=== PATIENT | female | born 1995 | race African-American/Black ===

== ENCOUNTER 2018-10-28 13:15 | Observation (INO) | payer MEDICAID ==
[~2018-10-28] VITALS: Ht 149.9 cm; Wt 88.9 kg
[2018-10-28] MEDS ORDERED: LACTATED RINGER'S 1,000 ML IV ONE (14:04)
[2018-10-28] MEDS ORDERED: TERBUTALINE SULFATE 1 MG/ML 1ML VIAL SC ONE ×2 (14:09→14:15)
[2018-10-28] MEDS ORDERED: PREN-96 PO (14:48)
== END 2018-10-28 15:43 | disposition home or self-care (01) | DRG 566 ==
LOC: LDRP 13:15
PROVIDERS: ADMIT Specialist; ATTEND Specialist
DX: O62.9 Abnormality of forces of labor, unspecified (principal); Z3A.33 33 weeks gestation of pregnancy; Z87.891 Personal history of nicotine dependence
CPT/HCPCS: 59025; 81002; 96372; G0378; J3105; 96361; 96375

== ENCOUNTER 2018-11-04 11:39 | Observation (INO) | payer MEDICAID ==
[~2018-11-04 11:39] MED LIST: PREN-96 PO
== END 2018-11-04 13:20 | disposition home or self-care (01) | DRG 563 ==
LOC: LDRP 11:39
PROVIDERS: ADMIT Specialist; ATTEND Specialist
DX: O60.03 Preterm labor without delivery, third trimester (principal); Z3A.34 34 weeks gestation of pregnancy; Z87.891 Personal history of nicotine dependence
CPT/HCPCS: 59025; 76818; 81002; G0378

== ENCOUNTER 2018-11-10 18:14 | Observation (INO) | payer MEDICAID ==
[~2018-11-10] VITALS: Ht 149.9 cm; Wt 89.4 kg
[2018-11-10] MEDS ORDERED: TERBUTALINE SULFATE 1 MG/ML 1ML VIAL SC SCH (18:45)
== END 2018-11-10 23:57 | disposition home or self-care (01) | DRG 566 ==
LOC: LDRP 18:14
PROVIDERS: ADMIT Obstetrics & Gynecology; ATTEND Obstetrics & Gynecology
DX: O26.893 Other specified pregnancy related conditions, third trimester (principal); R10.9 Unspecified abdominal pain; Z3A.35 35 weeks gestation of pregnancy
CPT/HCPCS: 59025; 76818; 81002; 96372; G0378; J3105

== ENCOUNTER 2018-11-11 07:29 | Observation (INO) | payer MEDICAID | END 2018-11-11 13:45 | disposition home or self-care (01) | DRG 563 | LOC: LDRP 12:30 | PROVIDERS: ADMIT Specialist; ATTEND Specialist | DX: O60.03 Preterm labor without delivery, third trimester (principal); Z3A.35 35 weeks gestation of pregnancy | CPT/HCPCS: 59025; 81002; G0378 ==

== ENCOUNTER 2018-12-08 06:01 | Inpatient (IN) | payer MEDICAID ==
[~2018-12-08] VITALS: Ht 149.9 cm; Wt 91.2 kg
[2018-12-08] VITALS (15 sets, daily range): BP systolic 100–136; BP diastolic 52–91
[2018-12-08] MEDS ORDERED: LACTATED RINGER'S 1,000 ML IV SCH (06:43)
[2018-12-08 07:37] LABS: Basophils # (auto) 0 uL; Basophils % (auto) 0.6 % (0.0-2.0); Eosinophils # (auto) 0.2 uL; Eosinophils % (auto) 2.7 % (0.0-7.0); Hematocrit 35.9 % (36.0-46.0); Hemoglobin 12.1 g/dL (12.2-16.2); Lymphocytes # (auto) 2.4 uL; Lymphocytes % (auto) 32.5 % (10.0-50.0); Mean Corpuscular Hemoglobin 29.3 pg (28.0-32.0); Mean Corpuscular Hgb Conc. 33.6 g/dL (32.0-36.0); Mean Corpuscular Volume 87.1 fL (80.0-100.0); Monocytes # (auto) 0.7 uL; Monocytes % (auto) 9.7 % (0.0-12.0); Neutrophils # (auto) 3.9 uL; Neutrophils % (auto) 54.5 % (37.0-80.0); Nucleated Red Blood Cells % 0.1 %; Platelet Count (auto) 159 10^3/uL (140-450); Red Blood Cells 4.12 10^6/uL (4.0-5.20); Red Cell Distribution Width 14.7 % (11.8-14.3); White Blood Cell 7.2 10^3/uL (4.4-10.8)
[2018-12-08 07:51] LABS: Urine Bacteria MOD /hpf (None Seen); Urine Blood Negative /uL (Negative); Urine Mucus FEW (None Seen); Urine Specific Gravity 1.013 (1.001-1.035); Urine WBC 10 /hpf (0 - 5)
[2018-12-08 07:53] LABS: INR < 0.93 (0.9-1.15); Partial Thromboplastin Time 29.4 sec (23.64-32.05)
[2018-12-08 08:03] LABS: Potassium 3.6 mmol/L (3.5-5.1)
[2018-12-08 08:04] LABS: Albumin 2.5 g/dL (3.4-5.0); BUN/Creatinine Ratio 5.6; Bilirubin, Total 0.2 mg/dL (0.2-1.0); Total Protein 6.6 g/dL (6.4-8.2)
[2018-12-08 08:50] LABS: Calcium 8.4 mg/dL (8.5-10.1)
[2018-12-08] MEDS ORDERED: TETRACAINE 1% INJ 2 ML VIAL IJ ONE (11:53)
[2018-12-08] MEDS ORDERED: fentaNYL CITRATE 100 MCG/2 ML VL ONE (11:53)
[2018-12-08] MEDS ORDERED: MIDAZOLAM HCL 1MG/1ML-2 ML VIAL ONE (11:53)
[2018-12-08] MEDS ORDERED: MORPHINE SULF(PF) 0.5MG/ML 10ML VIAL ONE (11:53)
[2018-12-08] MEDS ORDERED: OXYTOCIN 10 UNIT/ML 10ML VIAL ONE (12:54)
[2018-12-08] MEDS ORDERED: ceFAZolin 1GM VL ONE (12:54)
[2018-12-08] MEDS ORDERED: diphenhdrAMINE HCL 50 MG/1 ML VL IV PRN (14:15)
[2018-12-08] MEDS ORDERED: MORPHINE SULFATE 4 MG/ML SYR/VIAL IV PRN (14:15)
[2018-12-08] MEDS ORDERED: NALOXONE HCL 0.4 MG/ML VIAL IV PRN (14:15)
[2018-12-08] MEDS ORDERED: HYDROmorphone HCL 2 MG/ML VL IV PRN (14:15)
[2018-12-08] MEDS ORDERED: ONDANSETRON HCL 4 MG/2 ML VIAL IV PRN (14:15)
[2018-12-08] MEDS ORDERED: METOCLOPRAMIDE HCL 5MG/ml INJ 2ml VIAL IV PRN (14:15)
[2018-12-08] MEDS ORDERED: fentaNYL CITRATE 100 MCG/2 ML VL IV PRN (14:15)
[2018-12-08] MEDS ORDERED: ceFAZolin 1GM/50ML 50 ML IV SCH (14:15)
--- NOTE | 2018-12-08 15:15 | NUR ---
Post Op for LDRP: Received patient from PACU via bed to room . Patient A/A/Ox4, abdominal binder and bilateral SCD's are in place, IV fluids placed on pump and infusing per order, incisional site dressing clean/dry/intact and Antunez Catheter to gravity draining clear yellow urine. Incentive Spirometer at bedside and instruction on proper use with return demonstration done by patient. Call light given, rail up x2, and position to pts request.
[2018-12-08] MEDS ORDERED: ACETAMINOPHEN IV 1000 MG/100ML (10MG/ML) IV SCH (16:14)
--- NOTE | 2018-12-08 16:45 | NUR ---
Teaching: Reviewed information in [employer] booklet with patient. Discussed benefits of and risks associated with not . Discussed different positions, proper latch, feeding cues, and baby-led . Provided information of medication side effects related to . All questions and concerns addressed at this time. Patient verbalized understanding of information.
--- NOTE | 2018-12-08 17:00 | NUR ---
Bottle-feeding Education: Patient encouraged to breastfeed. Benefits of and the risk of providing formula to was discussed. Patient verbalized understanding of the benefits and is aware of risk and insists on bottle-feeding. Formula provided and instruction on formula preperation from the [employer] booklet reviewed with patient.
[2018-12-08] MEDS: ceFAZolin 1GM/50ML 50 ML IV SCH (20:47)
[2018-12-08] MEDS: HYDROmorphone HCL 2 MG/ML VL IV PRN (20:47)
[2018-12-08] MEDS ORDERED: ACETAMINOPHEN IV 1000 MG/100ML (10MG/ML) IV PRN (21:30)
[2018-12-08] MEDS: LACTATED RINGER'S 1,000 ML IV SCH ×2 (22:01→22:04)
[2018-12-09] VITALS (9 sets, daily range): BP systolic 106–127; BP diastolic 63–79
--- NOTE | 2018-12-09 01:40 | NUR ---
Ambulation: Patient provided with pericare, clean peripad, underwear and gown. Surgical dressing removed, incision clean and dry with 13 intact angela and well approximated edges. Incision left open to air. Patient provided non-slip socks and OOB with standby assistance by RN. Patient ambulated in hallway with steady gait accompanied by RN. Bed linen changed. Patient ambulated back to bed with steady gait and no distress noted, bed locked in lowest position, call light within reach and patient able to makes needs known. Will continue care.
[2018-12-09] MEDS: HYDROmorphone HCL 2 MG/ML VL IV PRN (04:45)
[2018-12-09] MEDS: ceFAZolin 1GM/50ML 50 ML IV SCH ×2 (04:47→12:57)
--- NOTE | 2018-12-09 05:00 | NUR ---
Gibbs catheter dc'd Dr Collier provides order to discontinue gibbs catheter. Gibbs dc'd with clean technique following deflation of balloon. Patient tolerated well with no complaints of pain. Continue care.
[2018-12-09 05:06] LABS: RPR Non Reactive (Non Reactive)
[2018-12-09 06:39] LABS: Basophils # (auto) 0.1 uL; Basophils % (auto) 1.1 % (0.0-2.0); Eosinophils # (auto) 0.1 uL; Hematocrit 34.9 % (36.0-46.0); Hemoglobin 11.8 g/dL (12.2-16.2); Lymphocytes # (auto) 1.5 uL; Lymphocytes % (auto) 19.1 % (10.0-50.0); Mean Corpuscular Hemoglobin 29.3 pg (28.0-32.0); Mean Corpuscular Hgb Conc. 33.7 g/dL (32.0-36.0); Monocytes # (auto) 0.8 uL; Monocytes % (auto) 9.7 % (0.0-12.0); Neutrophils # (auto) 5.4 uL; Neutrophils % (auto) 69.1 % (37.0-80.0); Nucleated Red Blood Cells % 0.1 %; Platelet Count (auto) 154 10^3/uL (140-450); Red Blood Cells 4.01 10^6/uL (4.0-5.20); Red Cell Distribution Width 14.9 % (11.8-14.3); White Blood Cell 7.8 10^3/uL (4.4-10.8)
[2018-12-09] MEDS ORDERED: LACTATED RINGER'S 1,000 ML IV SCH (09:35)
[2018-12-09] MEDS ORDERED: HYDROcodone-ACET 5/325MG TAB PO PRN (09:45)
[2018-12-09] MEDS: DOCUSATE SOD 100 MG CAP PO SCH ×2 (10:03→22:02)
[2018-12-09] MEDS: HYDROcodone-ACET 5/325MG TAB PO PRN ×2 (10:03→21:21)
--- NOTE | 2018-12-09 19:05 | NUR ---
PT up ambulating unit with steady gait, no acute distress noted
[2018-12-09] MEDS: SIMETHICONE 80 MG CHEWABLE TABLET PO PRN (19:11)
--- NOTE | 2018-12-09 21:26 | NUR ---
call placed out to Dr Price, regarding vital signs, awaiting call back at this time
[2018-12-09] MEDS: PIPERACILLIN-TAZOB 3.375GM 100 ML IV SCH (23:10)
[2018-12-09 23:12] LABS: Basophils # (auto) 0 uL; Basophils % (auto) 0.3 % (0.0-2.0); Eosinophils # (auto) 0 uL; Hematocrit 36.6 % (36.0-46.0); Hemoglobin 12.1 g/dL (12.2-16.2); Lymphocytes # (auto) 1.2 uL; Lymphocytes % (auto) 15.1 % (10.0-50.0); Mean Corpuscular Hemoglobin 28.8 pg (28.0-32.0); Mean Corpuscular Volume 87.2 fL (80.0-100.0); Monocytes # (auto) 0.8 uL; Monocytes % (auto) 10.3 % (0.0-12.0); Neutrophils # (auto) 5.9 uL; Neutrophils % (auto) 74.3 % (37.0-80.0); Platelet Count (auto) 202 10^3/uL (140-450); Red Cell Distribution Width 14.8 % (11.8-14.3)
[2018-12-10] MEDS: HYDROcodone-ACET 5/325MG TAB PO PRN ×4 (03:21→20:45)
[2018-12-10 03:25] VITALS: BP 125/78
[2018-12-10] MEDS: PIPERACILLIN-TAZOB 3.375GM 100 ML IV SCH ×4 (05:41→17:53)
[2018-12-10 06:50] VITALS: BP 122/73
--- NOTE | 2018-12-10 08:10 | NUR ---
DR. PATEL CALLED UNIT, STATUS UPDATE GIVEN, TRENDING VITALS SIGNS GIVEN, ALL LAB RESULTS REVIEWED, ACTIVE BOWEL SOUNDS PRESENT, PT PASSING FLATUS, FUNDUS IS 1 BELOW UMBILICUS, SCANT RUBRA BLEEDING NOTED, MAGDALENO CLEAN, DRY, AND INTACT. ORDERS RECEIVED FROM DR. PATEL TO CONTINUE WITH CURRENT PLAN OF CARE AND RESUME ZOSYN IV ANTIBIOTICS. READ BACK AND VERIFIED ORDERS. WILL CARRY OUT.
[2018-12-10] MEDS: DOCUSATE SOD 100 MG CAP PO SCH (09:50)
[2018-12-10] MEDS: SIMETHICONE 80 MG CHEWABLE TABLET PO PRN (09:51)
[2018-12-10 11:00] VITALS: BP 123/74
[2018-12-10 14:50] VITALS: BP 111/63
--- NOTE | 2018-12-10 18:15 | NUR ---
Received report, assumed care.
--- NOTE | 2018-12-10 18:35 | NUR ---
Initiated assessment, reviewed plan of care, discussed goals and patient safety. see flow sheet for complete data.
[2018-12-10 19:00] VITALS: BP 119/77
--- NOTE | 2018-12-10 21:30 | NUR ---
Out of bed, ambulating throughout unit. No distress noted.
[2018-12-10 23:20] VITALS: BP 119/75
[2018-12-11] MEDS: HYDROcodone-ACET 5/325MG TAB PO PRN ×2 (00:34→05:46)
[2018-12-11] MEDS: DOCUSATE SOD 100 MG CAP PO SCH ×2 (00:35→10:00)
[2018-12-11] MEDS: PIPERACILLIN-TAZOB 3.375GM 100 ML IV SCH ×2 (00:35→05:36)
--- NOTE | 2018-12-11 01:02 | NUR ---
Report received: assumed care for lunch coverage of stable mother and .
--- NOTE | 2018-12-11 02:00 | NUR ---
IV infiltrated, per MARIA ALEJANDRA Cleary, may discontinue IV and antibiotics
[2018-12-11 03:00] VITALS: BP 134/75
[2018-12-11] MEDS ORDERED: BISACODYL 10 MG RECT SUPP PR PRN (03:15)
--- NOTE | 2018-12-11 03:41 | NUR ---
Administered suppository, tolerated well.
--- NOTE | 2018-12-11 03:50 | NUR ---
MARIA ALEJANDRA Rice at bedside, staple removal
--- NOTE | 2018-12-11 04:24 | NUR ---
Out of bed, ambulating throughout unit
[2018-12-11 07:02] VITALS: BP 121/72
--- NOTE | 2018-12-11 10:35 | NUR ---
Discharge: Discharge instructions given as ordered. Pt encouraged to follow up with [facility] as instructed. All questions and concerns addressed. Patient verbalized understanding. Medication reconciliation completed and copy given to patient. Patient encouraged to prepare to depart unit.
[2018-12-11 10:50] VITALS: BP 129/83
--- NOTE | 2018-12-11 11:07 | NUR ---
Discharge: Patient taken to vehicle ambulatory via steady gait, pt declined wheelchair with all personal belongings, accompanied by staff and family members. No distress noted at time of departure, no adverse changes in status since initial assessment.
== END 2018-12-11 11:07 | disposition home or self-care (01) | DRG 540 ==
LOC: LDRP 06:01
PROVIDERS: ADMIT Obstetrics & Gynecology; ATTEND Obstetrics & Gynecology
PROC: 10D00Z1 Extraction of Products of Conception, Low, Open Approach (ICD-10-PCS; principal; 2018-12-08 12:28)
DX: O34.211 Maternal care for low transverse scar from previous cesarean delivery (principal); Z37.0 Single live birth; Z3A.39 39 weeks gestation of pregnancy; Z88.6 Allergy status to analgesic agent
CPT/HCPCS: 36415; 51702; 59025; 80053; 81001; 84112; 85025; 85610; 85730; 86592; 86850; 86900; 86901; 94762; 96365; 96366; 96375; G0378; J0131; J0690; J2250; J2543; J2590